=== PATIENT | female | born 1980 | race Caucasian/White ===

== ENCOUNTER → 2023-08-20 10:59 | Outpatient (REF) | payer BC, SELFPAY | LOC: WDC 10:59 | PROVIDERS: ATTENDING PHYSICIAN Advanced Practice Midwife; FAMILY PHYSICIAN Internal Medicine Geriatric Medicine | DX: Z12.31 Encounter for screening mammogram for malignant neoplasm of breast (principal) | CPT/HCPCS: 77063; 77067 ==

== ENCOUNTER → 2023-08-27 08:56 | Outpatient (REF) | payer BC, SELFPAY | LOC: WDC 08:56 | PROVIDERS: ATTENDING PHYSICIAN Advanced Practice Midwife; FAMILY PHYSICIAN Internal Medicine Geriatric Medicine | DX: R92.8 Other abnormal and inconclusive findings on diagnostic imaging of breast (principal) | CPT/HCPCS: 76642 ==

== ENCOUNTER → 2023-09-03 11:10 | Outpatient (REF) | payer BC, SELFPAY ==
--- NOTE | 2023-09-03 14:50 | OID.BR.INTR ---
OID Breast Navigator - Initial
- -
Did not meet patient at time of biopsy. Will follow up per protocol.
== END ==
LOC: WDC 11:10
PROVIDERS: ATTENDING PHYSICIAN Advanced Practice Midwife; FAMILY PHYSICIAN Internal Medicine Geriatric Medicine
DX: N63.21 Unspecified lump in the left breast, upper outer quadrant (principal)
CPT/HCPCS: 88305; 19083; 77065; 88341; 88342; A4648

== ENCOUNTER → 2023-10-11 08:16 | Outpatient (REF) | payer BC, SELFPAY | LOC: WDC 08:16 | PROVIDERS: ATTENDING PHYSICIAN Surgery | DX: N63.21 Unspecified lump in the left breast, upper outer quadrant (principal) | CPT/HCPCS: 19285; 77065; A4648 ==

== ENCOUNTER 2023-10-15 06:22 | Day surgery (SDC) | payer BC, SELFPAY ==
[2023-10-11 12:45] VITALS: BMI 24.7
[2023-10-11 14:50] LABS: Hemoglobin 12.5 g/dL (12.0-16.0); Mean Corp Hgb Conc. 34.7 g/dL (33.0-37.0); Mean Corpuscular Hgb 32.5 pg (27.0-31.0); Mean Corpuscular Volume 93.5 fL (81.0-99.0); Mean Platelet Volume 9.7 fL (7.4-10.4); Platelet Count 269 10^3/uL (130-400); Red Blood Cell Count 3.85 10^6/uL (4.20-5.40); White Blood Cell Count 4.4 10^3/uL (4.8-10.8)
[2023-10-11 15:32] LABS: ALT (SGPT) 40 U/L (0-35); AST (SGOT) 36 U/L (14-36); Albumin 4.4 g/dl (3.5-5.0); Alkaline Phosphatase 45 U/L (38-126); Blood Urea Nitrogen 6 mg/dl (7-17); Calcium 9.6 mg/dl (8.4-10.2); Carbon Dioxide 27 mmol/L (22-30); Chloride 102 mmol/L (98-107); Estimated Creatinine Clearance 100 ml/min; Glucose 84 mg/dl (70-99); Potassium 4.1 mmol/L (3.5-5.1); Sodium 136 mmol/L (135-145); Total Bilirubin 0.6 mg/dl (0.2-1.3); Total Protein 6.9 g/dl (6.3-8.2); eGFR > 60.00
[2023-10-11 15:38] LABS: Prealbumin (Transthyretin) 22.3 mg/dl (17.6-36.0)
[2023-10-11 15:51] LABS: Vitamin D, 25-OH*** 44.3 ng/mL (30-80)
[2023-10-15 09:11] VITALS: BP 119/70
[2023-10-15] MEDS: NORMOSOL-R 1000 IV (09:25)
[2023-10-15] MEDS: TYLENOL 1000 MG PO (09:26)
[2023-10-15 09:38] VITALS: BMI 24.7
[2023-10-15] MEDS: LOVENOX 40 MG SC (10:58)
[2023-10-15] MEDS: VANCOCIN 200 IV (10:58)
[2023-10-15 14:08] VITALS: BP 105/66
[2023-10-15 14:21] VITALS: BP 147/126
[2023-10-15 14:30] VITALS: BP 118/68
[2023-10-15 14:45] VITALS: BP 108/61
[2023-10-15] MEDS: ROXICODONE 5 MG PO (14:48)
== END 2023-10-15 15:03 | disposition home or self-care (01) ==
LOC: SDS 06:22
PROVIDERS: ATTENDING PHYSICIAN Surgery; FAMILY PHYSICIAN Internal Medicine Geriatric Medicine
DX: D24.1 Benign neoplasm of right breast (principal)
CPT/HCPCS: 19301; 88305; 88307; 36415; 76098; 80053; 82306; 84134; 85027; 88342; A4648

== ENCOUNTER → 2024-08-21 16:02 | Outpatient (REF) | payer BC, SELFPAY | LOC: WDC 16:02 | PROVIDERS: ATTENDING PHYSICIAN Internal Medicine Geriatric Medicine | DX: Z12.31 Encounter for screening mammogram for malignant neoplasm of breast (principal) | CPT/HCPCS: 77063; 77067 ==